=== PATIENT | male | born 1980 | race American Indian/Alaskan Native ===

== ENCOUNTER 2016-07-30 08:46 | Emergency (ER) | payer OTHER ==
[2016-07-30 09:41] LABS: Basophils % (Auto) 0.6 % (0.0-1.8); Hematocrit 46.7 % (35.5-45.6); Hemoglobin 14.9 gm/dl (11.8-15.2); Mean Corpuscular HGB Conc 32 % (32-34); Mean Corpuscular Volume 79 fl (84-94); Platelet Count 257 K/mm3 (140-440); Red Blood Count 5.94 M/mm3 (3.65-5.03); Red Cell Distribution Width 15.5 % (13.2-15.2); White Blood Count 9.4 K/mm3 (4.5-11.0)
[2016-07-30 09:44] LABS: Mean Corpuscular Hemoglobin 25 pg (28-32)
[2016-07-30 09:57] LABS: Alanine Aminotransferase 13 units/L (7-56); Albumin 4.2 g/dL (3.9-5); Albumin/Globulin Ratio 1.4 %; Alkaline Phosphatase 83 units/L (35-129); Anion Gap 15 mmol/L; Blood Urea Nitrogen 9 mg/dL (9-20); Calcium 9.3 mg/dL (8.4-10.2); Carbon Dioxide 29 mmol/L (22-30); Chloride 101.1 mmol/L (98-107); Glucose 97 mg/dL (75-100); Lipase 27 units/L (13-60); Potassium 4.9 mmol/L (3.6-5.0); Sodium 140 mmol/L (137-145); Total Protein 7.3 g/dL (6.3-8.2)
[2016-07-30 11:15] LABS: Bilirubin,Urine NEG (Negative); Blood,Urine NEG (Negative); Ketones,Urine NEG (Negative); Leukocyte Esterase,Urine NEG (Negative); Nitrite,Urine NEG (Negative); Protein,Urine <15 mg/dL mg/dL (Negative); Urobilinogen,Urine < 2.0 mg/dL (<2.0); WBC,Urine < 1.0 /HPF (0.0-6.0)
[2016-07-30 16:08] VITALS: BP 107/73
[2016-07-30] MEDS ORDERED: ZOFRAN IV ONE (16:25)
[2016-07-30] MEDS ORDERED: NACL 0.9% 1000 ML 1,000 ML IV ONE (16:25)
[2016-07-30] MEDS ORDERED: TORADOL IV ONE (16:25)
[2016-07-30] MEDS ORDERED: NACL ONE (17:06)
--- NOTE | 2016-07-30 17:36 | Emergency Department Report ---
ED Abdominal Pain HPI - General Chief Complaint: Abdominal Pain Stated Complaint: ABD PAIN Time Seen by Provider: 07/30/16 15:38 Source: patient Mode of arrival: Ambulatory Limitations: No Limitations - History of Present Illness MD Complaint: abdominal pain Onset/Timin -: Gradual, month(s) Location: diffuse Radiation: none Migration to: no migration Severity scale (0 -10): 6 Quality: cramping, aching Consistency: intermittent Worsens With: nothing Associated Symptoms: denies: nausea, vomiting, diarrhea, fever, chills, constipation, dysuria, hematemesis - Related Data Previous Rx's Medication Instructions Recorded Last Taken Type Ciprofloxacin HCl [Ciprofloxacin 500 mg PO Q12H #14 tab 07/30/16 Unknown Rx TAB] Dicyclomine [Bentyl] 20 mg PO BID #14 tablet 07/30/16 Unknown Rx Allergies Allergy/AdvReac Type Severity Reaction Status Date / Time No Known Allergies Allergy Unverified 07/30/16 09:19 ED Review of Systems ROS: Stated complaint: ABD PAIN Other details as noted in HPI Constitutional: denies: chills, fever Eyes: denies: eye pain, eye discharge, vision change ENT: denies: ear pain, throat pain Respiratory: denies: cough, shortness of breath, wheezing Cardiovascular: denies: chest pain, palpitations Endocrine: no symptoms reported Gastrointestinal: denies: abdominal pain, nausea, diarrhea Genitourinary: denies: urgency, dysuria Musculoskeletal: denies: back pain, joint swelling, arthralgia Skin: denies: rash, lesions Neurological: denies: headache, weakness, paresthesias Psychiatric: denies: anxiety, depression Hematological/Lymphatic: denies: easy bleeding, easy bruising ED Past Medical Hx - Past Medical History Previous Medical History?: No - Surgical History Past Surgical History?: Yes Additional Surgical History: Right hand surgery - Social History Smoking Status: Current Every Day Smoker Substance Use Type: None, Marijuana - Medications Home Medications: Home Medications Medication Instructions Recorded Confirmed Last Taken Type Ciprofloxacin HCl [Ciprofloxacin 500 mg PO Q12H #14 tab 07/30/16 Unknown Rx TAB] Dicyclomine [Bentyl] 20 mg PO BID #14 tablet 07/30/16 Unknown Rx ED Physical Exam - General Limitations: No Limitations General appearance: alert, in no apparent distress - Head Head exam: Present: atraumatic, normocephalic - Eye Eye exam: Present: normal appearance - ENT ENT exam: Present: mucous membranes moist - Neck Neck exam: Present: normal inspection - Respiratory Respiratory exam: Present: normal lung sounds bilaterally. Absent: respiratory distress - Cardiovascular Cardiovascular Exam: Present: regular rate, normal rhythm. Absent: systolic murmur, diastolic murmur, rubs, gallop - GI/Abdominal GI/Abdominal exam: Present: soft, normal bowel sounds - Rectal Rectal exam: Present: deferred - Extremities Exam Extremities exam: Present: normal inspection - Back Exam Back exam: Present: normal inspection - Neurological Exam Neurological exam: Present: alert, oriented X3 - Psychiatric Psychiatric exam: Present: normal affect, normal mood - Skin Skin exam: Present: warm, dry, intact, normal color. Absent: rash ED Course Vital Signs 07/30/16 07/30/16 07/30/16 09:19 16:06 17:29 Temperature 98.1 F 98.5 F Pulse Rate 52 L Respiratory 20 18 20 Rate Blood Pressure 120/86 Blood Pressure 107/73 [Right] O2 Sat by Pulse 100 100 Oximetry ED Medical Decision Making - Lab Data Result diagrams: 07/30/16 09:25 07/30/16 17:27 - Radiology Data Radiology results: report reviewed, image reviewed - Medical Decision Making Patient doing well, tolerating po here in the ER, ct abd and pelvis negative , will dc with proper follow up. Critical care attestation.: If time is entered above; I have spent that time in minutes in the direct care of this critically ill patient, excluding procedure time. ED Disposition Clinical Impression: Abdominal pain Disposition: DISCHARGED TO HOME OR SELFCARE Is pt being admited?: No Does the pt Need Aspirin: No Condition: Good Instructions: Abdominal Pain (ED) Prescriptions: Ciprofloxacin HCl [Ciprofloxacin TAB] 500 mg PO Q12H #14 tab Dicyclomine [Bentyl] 20 mg PO BID #14 tablet Referrals: PRIMARY CARE, [Primary Care Provider] - 3-5 Days Time of Disposition: 18:38
--- NOTE | 2016-07-30 17:50 | Cat Scan Report ---
FINAL REPORT EXAM: CT ABDOMEN PELVIS W CON HISTORY: Abdominal Pain TECHNIQUE: Spiral CT scanning of the abdomen and pelvis after the uneventful administration of IV contrast. Multiplanar reformations. 100 mL Omnipaque IV. PRIORS: None. FINDINGS: Abdomen: Visualized lung bases grossly unremarkable. No radiopaque gallstones. Liver without significant abnormality. Spleen without significant abnormality. Pancreas without significant abnormality. Kidneys without significant abnormality. Adrenal glands without significant abnormality. Pelvis: Bowel evaluation limited due to lack of oral contrast administration, but grossly unremarkable. Appendix within normal limits. No significant free peritoneal fluid or apparent adenopathy. Abdominal aorta non-aneurysmal. IMPRESSION: 1. No acute findings.
[2016-07-30 18:09] LABS: Alanine Aminotransferase 7 units/L (7-56); Albumin 3.7 g/dL (3.9-5); Albumin/Globulin Ratio 1.3 %; Alkaline Phosphatase 72 units/L (35-129); Anion Gap 14 mmol/L; BUN/Creatinine Ratio 11.25; Blood Urea Nitrogen 9 mg/dL (9-20); Calcium 8.5 mg/dL (8.4-10.2); Carbon Dioxide 28 mmol/L (22-30); Chloride 99.5 mmol/L (98-107); Glucose 80 mg/dL (75-100); Lipase 33 units/L (13-60); Potassium 4.3 mmol/L (3.6-5.0); Sodium 137 mmol/L (137-145); Total Protein 6.5 g/dL (6.3-8.2)
[2016-07-30 18:22] LABS: Bilirubin,Direct < 0.2 mg/dL (0-0.2); Bilirubin,Indirect 0.6 mg/dL
== END 2016-07-30 19:20 | disposition home or self-care (01) ==
LOC: ED 08:46
DX: R10.84 Generalized abdominal pain (principal); F17.200 Nicotine dependence, unspecified, uncomplicated; F12.10 Cannabis abuse, uncomplicated
CPT/HCPCS: 36415; 74177; 80048; 80053; 80074; 81001; 83690; 85025; 96361; 96374; 96375; 99284; J1885; J2405; J7030; Q9967

== ENCOUNTER 2019-08-22 03:22 | Emergency (ER) | payer SELFPAY ==
[2019-08-22 03:28] VITALS: BP 138/96
== END 2019-08-22 06:11 | disposition home or self-care (01) ==
LOC: ED 03:22
DX: G43.909 Migraine, unspecified, not intractable, without status migrainosus (principal); J01.40 Acute pansinusitis, unspecified; F17.200 Nicotine dependence, unspecified, uncomplicated
CPT/HCPCS: 70450; 96374; 96375; 99283; J1200; J2765

== ENCOUNTER 2020-11-13 09:46 | Emergency (ER) | payer SELFPAY ==
[2020-11-13 09:53] VITALS: BP 127/89
--- NOTE | 2020-11-13 10:38 | Emergency Department Report ---
ED ENT HPI - General Chief complaint: Dental/Oral Stated complaint: MOUTH Time Seen by Provider: 11/13/20 10:15 Source: patient Mode of arrival: Ambulatory Limitations: No Limitations - History of Present Illness Initial comments: 32-year-old female department complaining pain to his right lower dental molar region with some adjacent swelling secondary with lesions and infection. He has had issues with this tooth in the past several months ago and had a reemergence of his symptoms for reasons are unknown. He stated to follow- up with a dentist in the near future but has not yet done done so due to insurance issues which has now been remedied. Reports hemoptysis hematemesis hematochezia. No odynophagia or dysphagia no fever, chills, sweats. No discharge is noted but the swelling is spreading to his left mandible region and pain with palpation chewing and and and range of motion. There is no neck pain no shortness of breath. MD complaint: tooth pain Location: tooth # Severity: mild, moderate Quality: dull Consistency: constant Improves with: none Worsens with: none - Related Data Previous Rx's Medication Instructions Recorded Last Taken Type Ciprofloxacin HCl [Ciprofloxacin 500 mg PO Q12H #14 tab 07/30/16 Unknown Rx TAB] Dicyclomine [Bentyl] 20 mg PO BID #14 tablet 07/30/16 Unknown Rx Cyclobenzaprine [Flexeril] 10 mg PO TID PRN #30 tablet 01/08/18 Unknown Rx Menthol/Camphor [[place] 1 applicatio TP BID #1 tube 01/08/18 Unknown Rx Ointment] Mupirocin [Bactroban 2% OINT] 1 applic TP TID 14 Days #1 tube 01/08/18 Unknown Rx Naproxen [Naprosyn] 500 mg PO ONCE #30 tablet 01/08/18 Unknown Rx Amoxicillin/Potassium Clav 1 each PO Q12H #20 tablet 08/22/19 Unknown Rx [Augmentin 875-125 Tablet] Butalb/Acetamin/Caff 50-325-40 1 - 2 tab PO Q6HR PRN #15 tab 08/22/19 Unknown Rx [Fioricet 50-325-40] Ketorolac [Toradol] 10 mg PO Q8H PRN #20 tablet 08/22/19 Unknown Rx Promethazine [Phenergan] 25 mg PO Q6HR PRN #20 tab 08/22/19 Unknown Rx Amoxicillin [Amoxicillin TAB] 875 mg PO BID #20 tablet 11/13/20 Unknown Rx Chlorhexidine Mouthwash [Peridex] 15 ml MM BID #1 bottle 11/13/20 Unknown Rx Ketorolac [Toradol] 10 mg PO Q6H PRN #15 tablet 11/13/20 Unknown Rx Lidocaine Viscous 2% 5 ml MM Q3H PRN #120 udc 11/13/20 Unknown Rx Allergies Allergy/AdvReac Type Severity Reaction Status Date / Time seafood Allergy Angioedema Uncoded 01/08/18 03:03 ED Dental HPI - General Chief complaint: Dental/Oral Stated complaint: MOUTH Time Seen by Provider: 11/13/20 10:15 Source: patient Mode of arrival: Ambulatory Limitations: No Limitations - Related Data Previous Rx's Medication Instructions Recorded Last Taken Type Ciprofloxacin HCl [Ciprofloxacin 500 mg PO Q12H #14 tab 07/30/16 Unknown Rx TAB] Dicyclomine [Bentyl] 20 mg PO BID #14 tablet 07/30/16 Unknown Rx Cyclobenzaprine [Flexeril] 10 mg PO TID PRN #30 tablet 01/08/18 Unknown Rx Menthol/Camphor [[place] 1 applicatio TP BID #1 tube 01/08/18 Unknown Rx Ointment] Mupirocin [Bactroban 2% OINT] 1 applic TP TID 14 Days #1 tube 01/08/18 Unknown Rx Naproxen [Naprosyn] 500 mg PO ONCE #30 tablet 01/08/18 Unknown Rx Amoxicillin/Potassium Clav 1 each PO Q12H #20 tablet 08/22/19 Unknown Rx [Augmentin 875-125 Tablet] Butalb/Acetamin/Caff 50-325-40 1 - 2 tab PO Q6HR PRN #15 tab 08/22/19 Unknown Rx [Fioricet 50-325-40] Ketorolac [Toradol] 10 mg PO Q8H PRN #20 tablet 08/22/19 Unknown Rx Promethazine [Phenergan] 25 mg PO Q6HR PRN #20 tab 08/22/19 Unknown Rx Amoxicillin [Amoxicillin TAB] 875 mg PO BID #20 tablet 11/13/20 Unknown Rx Chlorhexidine Mouthwash [Peridex] 15 ml MM BID #1 bottle 11/13/20 Unknown Rx Ketorolac [Toradol] 10 mg PO Q6H PRN #15 tablet 11/13/20 Unknown Rx Lidocaine Viscous 2% 5 ml MM Q3H PRN #120 udc 11/13/20 Unknown Rx Allergies Allergy/AdvReac Type Severity Reaction Status Date / Time seafood Allergy Angioedema Uncoded 01/08/18 03:03 ED Review of Systems ROS: Stated complaint: MOUTH Other details as noted in HPI Comment: All other systems reviewed and negative ED Past Medical Hx - Past Medical History Previous Medical History?: No Additional medical history: denies - Surgical History Past Surgical History?: Yes Additional Surgical History: Right hand surgery - Social History Smoking Status: Current Every Day Smoker Substance Use Type: None - Medications Home Medications: Home Medications Medication Instructions Recorded Confirmed Last Taken Type Ciprofloxacin HCl [Ciprofloxacin 500 mg PO Q12H #14 tab 07/30/16 Unknown Rx TAB] Dicyclomine [Bentyl] 20 mg PO BID #14 tablet 07/30/16 Unknown Rx Cyclobenzaprine [Flexeril] 10 mg PO TID PRN #30 tablet 01/08/18 Unknown Rx Menthol/Camphor [[place] 1 applicatio TP BID #1 tube 01/08/18 Unknown Rx Ointment] Mupirocin [Bactroban 2% OINT] 1 applic TP TID 14 Days #1 tube 01/08/18 Unknown Rx Naproxen [Naprosyn] 500 mg PO ONCE #30 tablet 01/08/18 Unknown Rx Amoxicillin/Potassium Clav 1 each PO Q12H #20 tablet 08/22/19 Unknown Rx [Augmentin 875-125 Tablet] Butalb/Acetamin/Caff 50-325-40 1 - 2 tab PO Q6HR PRN #15 tab 08/22/19 Unknown Rx [Fioricet 50-325-40] Ketorolac [Toradol] 10 mg PO Q8H PRN #20 tablet 08/22/19 Unknown Rx Promethazine [Phenergan] 25 mg PO Q6HR PRN #20 tab 08/22/19 Unknown Rx Amoxicillin [Amoxicillin TAB] 875 mg PO BID #20 tablet 11/13/20 Unknown Rx Chlorhexidine Mouthwash [Peridex] 15 ml MM BID #1 bottle 11/13/20 Unknown Rx Ketorolac [Toradol] 10 mg PO Q6H PRN #15 tablet 11/13/20 Unknown Rx Lidocaine Viscous 2% 5 ml MM Q3H PRN #120 udc 11/13/20 Unknown Rx ED Physical Exam - General Limitations: No Limitations General appearance: alert, in no apparent distress - Head Head exam: Present: atraumatic, normocephalic - Eye Eye exam: Present: normal appearance, PERRL, EOMI Pupils: Present: normal accommodation - ENT ENT exam: Present: normal exam, normal orophraynx, mucous membranes moist, TM's normal bilaterally, other (Tenderness to the left lower dentition around tooth number 19 and 20. With some adjacent gingival swelling. Airway is patent tongue uvula midline) - Neck Neck exam: Present: normal inspection, full ROM - Respiratory Respiratory exam: Present: normal lung sounds bilaterally. Absent: respiratory distress, wheezes, rales - Cardiovascular Cardiovascular Exam: Present: regular rate, normal rhythm. Absent: systolic murmur, diastolic murmur, rubs, gallop - GI/Abdominal GI/Abdominal exam: Present: soft, normal bowel sounds - Rectal Rectal exam: Present: deferred - Extremities Exam Extremities exam: Present: normal inspection - Back Exam Back exam: Present: normal inspection - Neurological Exam Neurological exam: Present: alert, oriented X3 - Psychiatric Psychiatric exam: Present: normal affect, normal mood - Skin Skin exam: Present: warm, dry, intact, normal color. Absent: rash ED Course Vital Signs 11/13/20 09:52 Temperature 98.4 F Pulse Rate 82 Respiratory 14 Rate Blood Pressure 127/89 O2 Sat by Pulse 98 Oximetry ED Medical Decision Making - Medical Decision Making 40-year-old male noted to emerge department for return dental pain due to infected dental caries and erosion. He has an adjacent gingival swelling suggestive of abscess formation will be treated with antibiotics and anti- inflammatories advised to follow-up with the dentist for definitive treatment of his symptoms. Critical care attestation.: If time is entered above; I have spent that time in minutes in the direct care of this critically ill patient, excluding procedure time. ED Disposition Clinical Impression: Infected dental caries Disposition: HOME / SELF CARE / HOMELESS Is pt being admited?: No Does the pt Need Aspirin: No Condition: Stable Instructions: Dental Abscess, Preventive Dental Care, Adult Prescriptions: Amoxicillin [Amoxicillin TAB] 875 mg PO BID #20 tablet Lidocaine Viscous 2% 5 ml MM Q3H PRN #120 udc PRN Reason: Pain, Moderate (4-6) Chlorhexidine Mouthwash [Peridex] 15 ml MM BID #1 bottle Ketorolac [Toradol] 10 mg PO Q6H PRN #15 tablet PRN Reason: Pain Referrals: [facility] [Outside] - 3-5 Days [facility] [Outside] - 3-5 Days
== END 2020-11-13 12:15 | disposition home or self-care (01) ==
LOC: ED 09:46
DX: K02.9 Dental caries, unspecified (principal); F17.200 Nicotine dependence, unspecified, uncomplicated; Z98.890 Other specified postprocedural states; Z79.899 Other long term (current) drug therapy; Z91.013 Allergy to seafood
CPT/HCPCS: 99282

== ENCOUNTER 2021-08-21 16:59 | Emergency (ER) | payer SELFPAY | END 2021-08-21 17:00 | disposition left against medical advice (07) | LOC: ED 16:59 | DX: Z13.30 Encounter for screening examination for mental health and behavioral disorders, unspecified (principal); Z53.21 Procedure and treatment not carried out due to patient leaving prior to being seen by health care provider ==